=== PATIENT | male | born 1965 | race Caucasian/White ===

== ENCOUNTER 2016-08-06 12:18 | Emergency (ER) | payer SELFPAY ==
[~2016-08-06] VITALS: Ht 170.2 cm; Wt 70.0 kg
[2016-08-06] MEDS ORDERED: SODIUM CHLORIDE 0.9% 1,000 ML IV ONE (12:41)
[2016-08-06] MEDS ORDERED: PANTOPRAZOLE SODIUM 40 MG/VIAL IV ONE (12:45)
[2016-08-06 13:14] LABS: BASOPHILS % 0.5 % (0.0-2.0); EOSINOPHILS % 0.4 % (0.0-5.0); HEMATOCRIT. 42.9 % (42.0-52.0); HEMOGLOBIN. 14.7 g/dL (14.0-18.0); LYMPHOCYTES % 19.6 % (20.0-50.0); MEAN CORPUSCULAR HEMOGLOBIN 31.4 pg (28.0-32.0); MEAN CORPUSCULAR HGB CONC 34.2 g/dL (31.0-37.0); MEAN CORPUSCULAR VOLUME 91.7 fL (80.0-94.0); MEAN PLATELET VOLUME 8.3 fl (7.4-10.4); NEUTROPHILS % 70.5 % (40.0-76.0); PLATELET 257 x1000/uL (130-400); RED BLOOD CELL COUNT 4.68 mill/uL (4.7-6.1); RED CELL DISTRIBUTION WIDTH 12.9 % (11.6-14.6); WHITE BLOOD COUNT 9.2 x1000/uL (4.5-11.0)
[2016-08-06 13:21] LABS: CHLORIDE 105 mEq/L (98-107); INDEX HEMOLYSI 1 (1-3); INDEX ICTERIC 1 (1-4); INDEX LIPEMIC 1 (1-3)
[2016-08-06 13:22] LABS: INR 1.1; PROTHROMBIN TIME 11.4 sec
[2016-08-06 13:29] LABS: ALANINE AMINOTRANSFERASE 44 IU/L (13-61); ANION GAP 13; CALCIUM 8.8 mg/dL (8.5-10.1); CARBON DIOXIDE 27 mEq/L (21-32); LIPASE 138 IU/L (73-393); UREA NITROGEN BLOOD 13 mg/dL (7-21); eGFR > 60 mL/min (>60)
[2016-08-06 13:31] LABS: TROPONIN I < 0.02 ng/mL (0.00-0.04)
[2016-08-06 16:52] VITALS: BP 140/88
== END 2016-08-06 17:34 | disposition home or self-care (01) ==
LOC: ER 12:19
DX: R07.89 Other chest pain (principal)
CPT/HCPCS: 36415; 71010; 80053; 83690; 84484; 85025; 85610; 93005; 96361; 96374; 99285; C9113; J7030